=== PATIENT | female | born 1985 | race Caucasian/White ===

== ENCOUNTER 2024-09-20 16:14 | Emergency (ER) | payer OTHER ==
[2024-09-20 17:04] LABS: Specific Gravity 1.022 (1.005-1.030); Sqamous Epithelial <5 /HPF (None Seen); Urine Bacteria <20 /HPF (<20); Urine Bilirubin NEGATIVE (Negative); Urine Blood 3+ (Negative); Urine Clarity Extremely Turbid (Clear); Urine Color Light-Orange (Yellow); Urine Crystals Unidentified Many /HPF (None Seen); Urine Culture Reflex Order REFLEXED; Urine Glucose NEGATIVE (Negative); Urine Ketones NEGATIVE (Negative); Urine Microscopic Reflex YN ORDER UMIC; Urine Nitrite NEGATIVE (Negative); Urine Protein 1+ (Negative); Urine RBC >50 /HPF (None Seen); Urine Urobilinogen Normal (Normal); Urine WBC >50 /HPF (<5); Urine WBC Clump Few /HPF (None Seen); Urine Yeast (Budding) Many /HPF (None Seen); Urine pH 6.5 (5.0-7.0)
[2024-09-20 17:05] LABS: Specific Gravity 1.022 (1.005-1.030)
[2024-09-20] MEDS ORDERED: NITROFURAN MACRO 100 MG CAP PO ONE (17:13)
--- NOTE | 2024-09-20 17:16 | ER ---
Nurse's Notes [facility] Name: Jumana Murray Age: 38 yrs Sex: Female : 1985 Arrival Date: 09/20/2024 Time: 16:14 Bed IW2 Private MD: Diagnosis: UTI/ Urinary tract infection, site not specified Presentation: 09/20 16:21 Chief complaint: Pain with urination x 3 days, blood in urine today. Coronavirus hb screen: At this time, the client does not indicate any symptoms associated with coronavirus-19. Ebola Screen: No symptoms or risks identified at this time. Initial Sepsis Screen: Does the patient meet any 2 criteria? No. Patient's initial sepsis screen is negative. Does the patient have a suspected source of infection? No. Patient's initial sepsis screen is negative. Risk Assessment: Do you want to hurt yourself or someone else? Patient reports no desire to harm self or others. Onset of symptoms was September 17, 2024. 16:21 Method Of Arrival: Ambulatory hb 16:21 Acuity: MIKEL 4 hb Historical: - Allergies: 16:23 Codeine; hb - Home Meds: 16:23 None [Active]; hb - PMHx: 16:23 None; hb - PSHx: 16:23 section; Appendectomy; hb - Immunization history:: Adult Immunizations up to date. - Infectious Disease History:: Denies. - Social history:: Smoking status: Patient reports the use of cigarette tobacco products, smokes one-half pack cigarettes per day. Vital Signs: 16:21 BP 136 / 80; Pulse 100; Resp 16; Temp 97.6(TE); Pulse Ox 100% on R/A; Weight 88.45 kg; hb Height 5 ft. 2 in. ; Pain 3/10; 16:21 Body Mass Index 35.67 (88.45 kg, 157.48 cm) hb 16:21 Pain Scale: Adult hb ED Course: 16:20 Patient arrived in ED. im 16:23 Triage completed. hb 16:24 Arm band placed on. hb 16:25 [facility]maraz [facility]C [facility]. kb 16:25 Robbin Amaya MD is Attending Physician. kb 16:52 Urine collected: clean catch specimen, cloudy. hb 16:52 Test, Urine Sent. hb 16:52 Urinalysis w/ reflexes Sent. hb Administered Medications: 17:21 Drug: Macrobid PO 100 mg PO once; administer with food Route: PO; hb Outcome: 17:16 Discharge ordered by . janice 17:22 Patient left the ED. hb Signatures: Kiera Almaraz FNP-C FNP-Ckb Baxter, Heather, RN RN Montse Reno
--- NOTE | 2024-09-20 17:16 | EDPHYS ---
Physician Documentation [facility] Name: Jumana Murray Age: 38 yrs Sex: Female : 1985 Arrival Date: 09/20/2024 Time: 16:14 Bed IW2 Private MD: ED Physician Robbin Amaya HPI: 09/20 16:27 This 38 yrs old Female presents to ER via Ambulatory with complaints of Urinary Problem.kb 16:27 Pt is a 38 year old female who presents for dysuria and hematuria that started 3 days kb ago. Denies n/v/d, fever, abd pain, back pain. . Historical: - Allergies: 16:23 Codeine; hb - Home Meds: 16:23 None [Active]; hb - PMHx: 16:23 None; hb - PSHx: 16:23 section; Appendectomy; hb - Immunization history:: Adult Immunizations up to date. - Infectious Disease History:: Denies. - Social history:: Smoking status: Patient reports the use of cigarette tobacco products, smokes one-half pack cigarettes per day. ROS: 17:15 Constitutional: As per HPI kb Exam: 17:15 Constitutional: This is a well developed, well nourished patient who is awake, alert, kb and in no acute distress. Head/Face: Normocephalic, atraumatic. ENT: Moist Mucous membranes Cardiovascular: Regular rate Respiratory: Respirations even and unlabored. No increased work of breathing. Talking in full sentences Abdomen/GI: Soft, non-tender. No distention Back: No spinal tenderness. No costovertebral tenderness. Full range of motion. Skin: Warm, dry with normal turgor. Normal color. MS/ Extremity: Pulses equal, no cyanosis. Neurovascular intact. Full, normal range of motion. Neuro: Awake and alert, GCS 15, oriented to person, place, time, and situation. Vital Signs: 16:21 BP 136 / 80; Pulse 100; Resp 16; Temp 97.6(TE); Pulse Ox 100% on R/A; Weight 88.45 kg; hb Height 5 ft. 2 in. ; Pain 3/10; 16:21 Body Mass Index 35.67 (88.45 kg, 157.48 cm) hb 16:21 Pain Scale: Adult hb MDM: 16:25 Medical Screening Exam initiated kb 16:28 Data reviewed: vital signs, nurses notes. kb 17:15 Differential diagnosis: UTI, kidney stone, pyelonephritis. Test considered but Not kb performed: CT: ct considered but pt has no abd or CVA pain or tenderness, afebrile. Counseling: I had a detailed discussion with the patient and/or guardian regarding the historical points, exam findings, and any diagnostic results supporting the discharge/admit diagnosis, lab results, the need for outpatient follow up, a family practitioner, to return to the emergency department if symptoms worsen or persist or if there are any questions or concerns that arise at home. 09/20 16:25 Order name: Test, Urine; Complete Time: 17:14 kb 09/20 16:25 Order name: Urinalysis w/ reflexes; Complete Time: 17:14 kb 09/20 17:08 Order name: Urine Culture EDMS Administered Medications: 17:21 Drug: Macrobid PO 100 mg PO once; administer with food Route: PO; Disposition: 09/21 07:02 Co-signature as Attending Physician, Robbin Amaya MD I reviewed the patient's care rt provided by the Advanced Practice Provider and agree with the diagnosis and treatment plan. Disposition Summary: 09/20/24 17:16 Discharge Ordered Notes: Location: Home kb Condition: Stable kb Diagnosis - UTI/ Urinary tract infection, site not specified kb Followup: kb - With: Emergency Department - When: As needed - Reason: Worsening of condition Followup: kb - With: Private Physician - When: 2 - 3 days - Reason: Recheck today's complaints, Continuance of care, Re-evaluation by your physician Discharge Instructions: - Discharge Summary Sheet kb - Urinary Tract Infection, Adult, [id number] kb Forms: - Medication Reconciliation Form kb - Antibiotic Education kb - Prescription Opioid Use kb - Patient Portal Instructions kb - Leadership Thank You Letter kb Prescriptions: - Macrobid 100 mg Oral Capsule - take 1 capsule ORAL route every 12 hours for 10 days; 20 capsule; Refills: 0, kb Product Selection Permitted Signatures: Dispatcher [employer] EDKiera Castro, Mary Mitchell RN RN Robbin Espinoza MD MD rt Corrections: (The following items were deleted from the chart) 09/20 16: 16:25 Test, Urine+UC.LAB.BRZ ordered. EDMS EDMS 16:25 16:25 Urinalysis+U.LAB.BRZ ordered. EDMS EDMS
[2024-09-20 19:37] VITALS: BP 136/80; TEMP 97.6; O2SAT 100
== END 2024-09-20 17:22 | disposition home or self-care (01) ==
LOC: ER 16:14
DX: N39.0 Urinary tract infection, site not specified (principal); F17.210 Nicotine dependence, cigarettes, uncomplicated
CPT/HCPCS: 81001; 81025; 87077; 87086; 87088; 87186; 99283